=== PATIENT | female | born 1995 | race Caucasian/White ===

== ENCOUNTER → 2022-06-07 | Outpatient (CLI) | payer BC | LOC: RAD 10:51 | DX: M25.522 Pain in left elbow (principal) ==

== ENCOUNTER 2023-10-19 16:15 | Emergency (ER) | payer BC ==
[~2023-10-19] VITALS: Ht 175.3 cm; Wt 55.5 kg
[2023-10-19 17:05] LABS: BASO # 0.03 K/mm3 (0.02-0.10); EOS # 0.07 K/mm3 (0.04-0.40); HEMOGLOBIN 12.4 g/dL (12.5-16.0); LYMPH# 2.32 K/mm3 (1.50-4.00); MEAN CELL VOLUME 97 fl (78-100); MEAN CORPUSCULAR HEMOGLOBIN 32 pg (27-31); MEAN CORPUSCULAR HGB CONC 33 g/dL (33-37); MEAN PLATELET VOLUME 9.1 fl (7.4-10.4); MONO # 0.37 K/mm3 (0.20-0.80); NEU # 3.93 K/mm3 (1.40-6.50); PLATELET COUNT 245 K/mm3 (130-400); RED BLOOD COUNT 3.92 M/mm3 (4.10-5.30); RED CELL DISTRIBUTION WIDTH 14.7 % (11.5-14.5); WHITE BLOOD COUNT 6.7 K/mm3 (4.8-10.8)
[2023-10-19 17:13] LABS: ALBUMIN 4.2 g/dL (3.5-5.0)
[2023-10-19 17:15] LABS: CALCIUM 9.9 mg/dL (8.3-10.5)
[2023-10-19 17:16] LABS: TOTAL PROTEIN 6.8 g/dL (6.4-8.3)
[2023-10-19 17:18] LABS: TOTAL BILIRUBIN 0.5 mg/dL (0.2-1.2)
[2023-10-19 17:21] LABS: D-DIMER 0.27 mg/L FEU (0.15-0.50)
[2023-10-19 18:13] VITALS: BP 119/88
== END 2023-10-19 18:15 | disposition home or self-care (01) ==
LOC: ED 16:15
PROVIDERS: Physician Assistant
DX: R60.0 Localized edema (principal)